=== PATIENT | female | born 1985 | race African-American/Black ===

== ENCOUNTER 2024-01-04 18:25 | Emergency (ER) | payer OTHER ==
[2024-01-04 18:31] VITALS: BP 125/62; PULSE 97; RESP 18; TEMP 98; BMI 22.4
== END 2024-01-04 20:02 | disposition home or self-care (01) ==
LOC: JERFT 18:25
DX: S92.504A Nondisplaced unspecified fracture of right lesser toe(s), initial encounter for closed fracture (principal); W22.8XXA Striking against or struck by other objects, initial encounter
CPT/HCPCS: 73630-TC-RT-FY; 99283-25